=== PATIENT | female | born 1980 | race Two or more races ===

== ENCOUNTER 2017-02-05 10:13 | Inpatient (IN) | payer MEDICAID ==
[~2017-02-05] VITALS: Ht 152.4 cm; Wt 90.0 kg
[~2017-02-05 10:13] MED LIST: EPHEDrine SULFATE 50 MG/5 ML SYG ONE
[2017-02-05 11:15] VITALS: Ht 152.4 cm; Wt 90.0 kg
[2017-02-05] MEDS ORDERED: OXYTOCIN 30 UNITS/LR 500 ML IV SCH (11:30)
[2017-02-05] MEDS ORDERED: MISOPROSTOL 200 MCG TAB PR PRN ×2 (11:30→22:00)
[2017-02-05] MEDS ORDERED: CARBOPROST 250 MCG INJ IM PRN ×2 (11:30→22:00)
[2017-02-05] MEDS ORDERED: CLINDAMYCIN 900 MG/D5W (PMX) 50 ML IV SCH (11:30)
[2017-02-05] MEDS ORDERED: METHYLERGONOVINE 0.2 MG INJ IM PRN ×2 (11:30→22:00)
[2017-02-05] MEDS ORDERED: OXYTOCIN 30 UNITS/LR 500 ML IV PRN ×2 (11:30→22:00)
[2017-02-05 11:49] LABS: ADD SCAN DIFF NO
[2017-02-05 11:57] LABS: BASOPHILS % 0.2 % (0.0-2.0); EOSINOPHILS % 0.4 % (0.0-7.0); HEMATOCRIT 37.6 % (37.0-47.0); HEMOGLOBIN 13.1 g/dl (12.0-16.0); LYMPHOCYTES # 1.5 10^3/ul (0.8-2.9); LYMPHOCYTES % 17.6 % (15.0-51.0); MEAN CORPUSCULAR HGB CONC 34.8 g/dl (32.0-37.0); MEAN CORPUSCULAR VOLUME 91.7 fl (82.0-101.0); MEAN PLATELET VOLUME 9.8 fl (7.4-10.4); MONOCYTE # 0.6 10^3/ul (0.3-0.9); MONOCYTES % 6.9 % (0.0-11.0); NEUTROPHIL # 6.3 10^3/ul (1.6-7.5); NEUTROPHILS % 74.1 % (39.0-77.0); PLATELET COUNT 256 10^3/UL (140-415); RED CELL DISTRIBUTION WIDTH 12.8 % (11.5-14.5); WHITE BLOOD COUNT 8.4 10^3/ul (4.8-10.8)
[2017-02-05 12:14] LABS: INR 0.81; PROTIME 11.2 Sec (12.2-14.2); PT RATIO 0.9
[2017-02-05 12:15] LABS: PARTIAL THROMBOPLASTIN TIME 25.1 Sec (25.0-35.0)
[2017-02-05] MEDS: LACTATED RINGER'S 1,000 ML IV SCH (13:49)
[2017-02-05] MEDS ORDERED: DEXTROSE 5%-LR 1,000 ML IV SCH (14:00)
[2017-02-05] MEDS ORDERED: CITRIC ACID/NA CITRATE 30 ML CUP PO ONE (14:00)
[2017-02-05 14:43] LABS: ALBUMIN 3.4 g/dl (3.3-4.9)
[2017-02-05 14:44] LABS: POTASSIUM 4.1 mmol/L (3.5-5.1)
[2017-02-05 14:46] LABS: ALBUMIN/GLOBULIN RATIO 0.91; BILIRUBIN,INDIRECT 0.1 mg/dl (0-1.1); BILIRUBIN,TOTAL 0.1 mg/dl (0.2-1.3); CREATININE 0.46 mg/dl (0.44-1.00); TOTAL PROTEIN 7.1 g/dl (6.1-8.1)
[2017-02-05 14:47] LABS: CALCIUM 9.2 mg/dl (8.4-10.2)
[2017-02-05 15:29] LABS: ADD UMIC NO; URINE BILIRUBIN (Dip) NEGATIVE (NEGATIVE); URINE BLOOD (Dip) NEGATIVE (NEGATIVE); URINE COLOR LT. YELLOW (YELLOW); URINE GLUCOSE (Dip) NEGATIVE (NEGATIVE); URINE KETONES (Dip) 40 (NEGATIVE); URINE LEUKOCYTE ESTERASE (Dip) NEGATIVE (NEGATIVE); URINE NITRITE (Dip) NEGATIVE (NEGATIVE); URINE TOTAL PROTEIN (Dip) NEGATIVE (NEGATIVE); URINE UROBILINOGEN (Dip) 0.2 E.U./dL (0.1-1.0)
[2017-02-05] MEDS ORDERED: morphine SULFATE/PF (10 MG/10 ML) INJ ONE (16:38)
[2017-02-05] MEDS ORDERED: METOCLOPRAMIDE 10 MG INJ ONE (17:20)
[2017-02-05] MEDS ORDERED: KETOROLAC 30 MG INJ ONE (17:20)
[2017-02-05] MEDS ORDERED: EPINEPHrine 0.1 MG/ML SYG ONE (17:22)
[2017-02-05] MEDS ORDERED: DIPHENHYDRAMINE 50 MG INJ IV PRN ×2 (18:00→19:00)
[2017-02-05] MEDS ORDERED: METOCLOPRAMIDE 10 MG INJ IV PRN (18:00)
[2017-02-05] MEDS ORDERED: MEPERIDINE 25 MG INJ IV PRN (18:00)
[2017-02-05] MEDS ORDERED: HYDROmorphONE (0.2 MG/ML) 10ML SYG IV PRN ×3 (18:00)
[2017-02-05] MEDS ORDERED: ONDANSETRON 4 MG INJ IV PRN ×2 (18:00→19:00)
[2017-02-05] MEDS ORDERED: HYDROmorphONE 1 MG/ML SYG IV PRN ×3 (19:00)
[2017-02-05] MEDS ORDERED: NALOXONE (0.4 MG/ML) INJ IV PRN (19:00)
--- NOTE | 2017-02-05 19:20 | OPR ---
DATE OF OPERATION: 02/05/2017 PREOPERATIVE DIAGNOSES: 1. Intrauterine at 38 weeks and 5 days, history of previous section, in early la bor. 2. complicated with the gestational diabetes and suspected -induced hypertension . POSTOPERATIVE DIAGNOSES: 1. Intrauterine at 38 weeks and 5 days, history of previous section, in early la bor. 2. complicated with the gestational diabetes and suspected -induced hypertension . OPERATION PERFORMED: Repeat transverse low cervical section. SURGEON: Poornima Steiner MD SWIM COACH: Hosea Chu MD ANESTHESIA: Spinal. ANESTHESIOLOGIST: Dr. Angel FINDINGS: Live baby boy, 7, 8, and 9. DETAILS OF THE PROCEDURE: Under satisfactory spinal anesthesia, the patient was prepped and draped and placed in supine position, tilted to the left. Pfannenstiel incision was made. Old scar was re moved. Incision carried through the subcutaneous tissue. Bleeders brought under control with elect rocautery. Fascia incised to the length of the incision. Rectus muscle divided in midline. Perito neum exposed, entered through a transverse incision. Exploration of abdomen. Gravid uterus, normal appearing tubes and ovaries, extremely thinned out lower segment of the uterus. Bladder flap was d eveloped. Transverse incision was made in the lower segment of the uterus. Amniotic sac ruptured. Meconium stained amniotic fluid noted. Live baby boy was delivered from unengaged vertex. Nasal o ropharyngeal suction was performed. Baby handed to the team for immediate attention. The patient received 20 units of Pitocin. Placenta, which was meconium stained, delivered manually and sent for pathology. Uterine cavity cleaned with a cleaned with wet sponge and drainage established. Uterus closed in 2 layers using Monocryl #1 in continuous fashion. Peritoneal cavity irrigated wi th warm saline. Sponge, needle, and instrument reported to be correct. Abdominal peritoneum closed with 2-0 chromic catgut continuously. Rectus muscle approximated with few interrupted 2-0 chromic catgut. Fascia closed with #1 PDS in a continuous fashion. Subcutaneous tissue approximated with 2 -0 chromic catgut. The skin closed with magalis. Estimated blood loss 600 to 700 mL. Urine bag co ntained 200 mL of clear urine. The patient tolerated procedure well, transferred to recovery room i n a good condition. Dictated By: POORNIMA STEINER MD HF/NTS Conf#: [id number] DID#: [id number]
--- NOTE | 2017-02-05 19:32 | HP ---
DATE OF ADMISSION: 02/05/2017 HISTORY OF PRESENT ILLNESS: This is a 35-year-old female, 6, para 2, termination 2 , 0, SAB 3, IAB 0, living child 2, with an EDC of 02/14/2017, admitted at 38 weeks and 5 day s to the hospital in labor with a history of 2 previous sections, being prepared to undergo a repeat for the third time. This patient has been under the care of the [facility] and her course was complicated with gestational diabetes, on glyburide 1000 mg at [facility]. No other complication has been noted during the course of this . GYNECOLOGIC HISTORY: Menarche at age 13, regular period every 28 days, lasting for 4 or 5 days. Hi story of total of 6 pregnancies, 2 previous sections, 3 spontaneous abortions. ALLERGIES: SHE IS NOT ALLERGIC TO PENICILLIN. SOCIAL HISTORY: Denies smoking and drinking. REVIEW OF SYSTEMS: Within normal. PHYSICAL EXAMINATION: VITAL SIGNS: Height 5 feet, weight 198 pounds with a temperature of 97.5, pulse of 58, respirations 18, and a blood pressure 123/62. HEAD, EARS, NOSE, AND THROAT: Negative. NECK: Supple. No thyromegaly. LUNGS: Clear to P and A. HEART: Normal sinus rhythm, no murmur. BREASTS: Status compatible with state of the . No abnormal palpable mass. No nipple retr action or discharge. No axillary adenopathy. No supraclavicular adenopathy. ABDOMEN: Measures approximately 37 cm from symphysis pubis. heart rate category 1. The zeb ent had mild contractions. PELVIC: Deferred. EXTREMITIES: No edema, no varicosities. IMPRESSION: 1. Intrauterine at 38 weeks and 5 days. 2. History of 2 previous sections. Referred from the perinatology due to 1 deceleration a nd 1 elevated blood pressure which was recommended to attempt for the repeat section. The patient is aware of the complication of this surgery including bowel or bladder injury, infectio n, hemorrhage, and hematoma, and she is willing to go ahead with this procedure. Dictated By: POORNIMA CASTREJON/NTS Conf#: [id number] DID#: [id number]
[2017-02-05 21:15] VITALS: BP 145/81; PULSE 63; RESP 18
[2017-02-05] MEDS ORDERED: LANOLIN 7 GM TUBE TOP PRN (22:00)
[2017-02-05] MEDS ORDERED: ACETAMINOPHEN/CODEINE #3 TAB PO PRN ×2 (22:00)
[2017-02-05] MEDS ORDERED: OXYCODONE/ACETAMINOPHEN (5/325) TAB PO PRN ×2 (22:00)
[2017-02-05] MEDS ORDERED: CEFAZOLIN 1 GM/50 ML (PMX) 50 ML IVPB SCH (22:00)
[2017-02-05] MEDS: OXYTOCIN 30 UNITS/LR 500 ML IV SCH (22:17)
[2017-02-06] VITALS: BP 138/84; PULSE 89; RESP 20
--- NOTE | 2017-02-06 00:58 | NSTRPT ---
NST Information Datetime Report Generated by CPN: 02/06/2017 00:58 Datetime: 02/05/2017 08:33 NST Information EGA: 38.5 Test Number: 11 Time on Monitor: 02/05/2017 08:50 Time off Monitor: 02/05/2017 09:36 NST Duration (Min): 46 Reason for NST: Diabetes Mellitus; Other Reason for NST Other: A2DM Test and Monitor Explained: Monitor Explained; Test Explained; Verbalized Understanding; Breastfee ding Info Given Pulse: 90 Resp: 18 SBP: 136 DBP: 90 Test Evaluation NST Interventions: PO Hydration; Reposition Patient Patient States Movement: Present Contraction Frequency: NONE FHR Baseline : 140 Variability: Moderate 6-25bpm Accelerations: 15X15 Decelerations: None FHR Category: Category I NST Results: Reactive Provider Notified: Dr Sen Comments: To u/s, CARL 11.9, Cephalic. BP 136/90. Pt c/o stars/spots and UTI symptoms, denies H/A or epigastic pain. states has mitra c/s 02/10. NPO after 744 914-Report called to Dr Harley, recommends delivery today. 919-Report called to ольга Sims's recommendation for delivery today. Orders received to admit to L_D for c/s this afternoon. POC discussed with pt states understanding and denies further questions at this time. 929-Report c alled to Darling RN, L_D. 940-Pt to L_D, no further questions Electronically Signed By E-Signature: with User ID: [id number] Datetime: 02/02/2017 09:19 NST Information EGA: 38.2 NST Duration (Min): 34 Datetime: 01/29/2017 08:48 NST Information EGA: 37.5 NST Duration (Min): 26 Datetime: 01/26/2017 09:18 NST Information EGA: 37.2 NST Duration (Min): 26 Datetime: 01/22/2017 09:02 NST Information EGA: 36.5 NST Duration (Min): 37 Datetime: 01/19/2017 08:26 NST Information EGA: 36.2 NST Duration (Min): 24 Datetime: 01/15/2017 10:39 NST Information EGA: 35.5 NST Duration (Min): 46 Datetime: 01/12/2017 10:47 NST Information EGA: 35.2 NST Duration (Min): 28 Datetime: 01/08/2017 10:49 NST Information EGA: 34.5 NST Duration (Min): 24 Datetime: 01/05/2017 10:12 NST Information EGA: 34.2 NST Duration (Min): 26 Datetime: 01/01/2017 13:43 NST Information EGA: 33.5 Datetime: 01/01/2017 13:40 NST Duration (Min): 22
[2017-02-06] MEDS: OXYTOCIN 30 UNITS/LR 500 ML IV SCH ×6 (02:21→21:33)
[2017-02-06 04:00] VITALS: BP 129/84; PULSE 76; RESP 18
[2017-02-06] MEDS: IBUPROFEN 600 MG TAB PO SCH ×5 (06:00→23:33)
[2017-02-06 07:39] LABS: ADD SCAN DIFF NO
[2017-02-06 07:49] LABS: BASOPHILS % 0.2 % (0.0-2.0); EOSINOPHILS % 0.5 % (0.0-7.0); HEMATOCRIT 35.1 % (37.0-47.0); HEMOGLOBIN 11.6 g/dl (12.0-16.0); LYMPHOCYTES # 1.2 10^3/ul (0.8-2.9); LYMPHOCYTES % 13.9 % (15.0-51.0); MEAN CORPUSCULAR VOLUME 93.9 fl (82.0-101.0); MEAN PLATELET VOLUME 10.3 fl (7.4-10.4); MONOCYTE # 0.5 10^3/ul (0.3-0.9); MONOCYTES % 5.7 % (0.0-11.0); NEUTROPHIL # 6.7 10^3/ul (1.6-7.5); NEUTROPHILS % 78.9 % (39.0-77.0); PLATELET COUNT 207 10^3/UL (140-415); RED BLOOD COUNT 3.74 10^6/ul (4.20-5.40); WHITE BLOOD COUNT 8.5 10^3/ul (4.8-10.8)
[2017-02-06 08:00] VITALS: BP 126/80; PULSE 86; RESP 19
[2017-02-06] MEDS: [UNRECOGNIZED DRUG - REMARK] XX SCH ×2 (08:30→15:11)
[2017-02-06] MEDS: SENNA/DOCUSATE NA (8.6MG/50MG) TAB PO SCH ×2 (10:38→20:39)
[2017-02-06 12:00] VITALS: BP 136/83; PULSE 82; RESP 19
--- NOTE | 2017-02-06 14:12 | PN ---
Date/Time of Note Date/Time of Note DATE: 02/06/17 TIME: 14:10 OB Subjective Subjective Subjective Post day 1 Afebrile vital signs stable, abdomen soft mildly distended bowel sounds present lochia normal incision dry extremities normal ambulation recommended Laboratory Tests Test 02/05/17 14:31 02/06/17 06:20 Urine Color LT. YELLOW Urine Clarity CLEAR Urine pH 6.5 Urine Specific [place] 1.010 Urine Ketones 40 Urine Nitrite NEGATIVE Urine Bilirubin NEGATIVE Urine Urobilinogen 0.2 E.U./dL Urine Leukocyte Esterase NEGATIVE Urine Hemoglobin NEGATIVE Urine Glucose NEGATIVE% Urine Total Protein NEGATIVE White Blood Count 8.510^3/ul Red Blood Count 3.7410^6/ul Hemoglobin 11.6g/dl Hematocrit 35.1% Mean Corpuscular Volume 93.9fl Mean Corpuscular Hemoglobin 31.0pg Mean Corpuscular Hemoglobin Concent 33.0g/dl Red Cell Distribution Width 13.0% Platelet Count 17821^3/UL Mean Platelet Volume 10.3fl Neutrophils % 78.9% Lymphocytes % 13.9% Monocytes % 5.7% Eosinophils % 0.5% Basophils % 0.2% Nucleated Red Blood Cells % 0.0/100WBC Neutrophils # 6.710^3/ul Lymphocytes # 1.210^3/ul Monocytes # 0.510^3/ul Eosinophils # 0.010^3/ul Basophils # 0.010^3/ul Nucleated Red Blood Cells # 0.010^3/ul Current Medications Medications (Trade) Dose Ordered Sig/Duke Route PRN Reason Start Time Stop Time Status Last Admin Dose Admin Lactated Ringer's 1,000 ml @ 125 mls/hr Q8H IV 02/05/17 11:11 02/05/17 21:36 DC 02/05/17 13:49 Clindamycin HCl/ Dextrose 50 ml @ 50 mls/hr ONCE IV 02/05/17 11:30 02/05/17 21:36 DC Oxytocin/Lactated Ringer's 500 ml @ 125 mls/hr ONCE IV 02/05/17 11:30 02/05/17 21:36 DC 02/05/17 20:35 Oxytocin/Lactated Ringer's 500 ml @ 0 mls/hr ONCE PRN IV For Hemorrhage Management 02/05/17 11:30 02/05/17 21:36 DC Methylergonovine Maleate (Methergine) 0.2 mg ONCE PRN IM VAGINAL BLEEDING 02/05/17 11:30 02/05/17 21:36 DC Carboprost Tromethamine (Hemabate) 250 mcg ONCE PRN IM VAGINAL BLEEDING 02/05/17 11:30 02/05/17 21:36 DC Misoprostol 1000 mcg 1,000 mcg ONCE PRN UT VAGINAL BLEEDING 02/05/17 11:30 02/05/17 21:36 DC Dextrose/Lactated Ringer's (D5-Lr) 1,000 ml @ 125 mls/hr Q8H IV 02/05/17 14:00 02/05/17 21:36 DC Citric Acid/ Sodium Citrate (Bicitra) 30 ml ONCE ONCE PO 02/05/17 14:00 02/05/17 14:01 DC Morphine Sulfate (Duramorph) 10 mg STK-MED ONCE .ROUTE 02/05/17 16:38 02/05/17 16:39 DC Metoclopramide HCl (Reglan) 10 mg STK-MED ONCE .ROUTE 02/05/17 17:20 02/05/17 17:21 DC Ketorolac Tromethamine (Toradol) 30 mg STK-MED ONCE .ROUTE 02/05/17 17:20 02/05/17 17:21 DC Epinephrine 1 mg STK-MED ONCE .ROUTE 02/05/17 17:22 02/05/17 17:23 DC Hydromorphone HCl (Dilaudid (Rec)) 0.2 mg PACU ORDER PRN IV MILD PAIN LEVEL 1-3 02/05/17 18:00 02/05/17 21:36 DC Hydromorphone HCl (Dilaudid (Rec)) 0.4 mg PACU ORDER PRN IV MODERATE PAIN LEVEL 4-6 02/05/17 18:00 02/05/17 21:36 DC Hydromorphone HCl (Dilaudid (Rec)) 0.6 mg PACU ORDER PRN IV SEVERE PAIN LEVEL 7-10 02/05/17 18:00 02/05/17 21:36 DC Ondansetron HCl (Zofran Inj) 4 mg PACU ORDER PRN IV NAUSEA AND/OR VOMITING 02/05/17 18:00 02/05/17 21:36 DC Metoclopramide HCl (Reglan) 10 mg PACU ORDER PRN IV NAUSEA AND/OR VOMITING 02/05/17 18:00 02/05/17 21:36 DC Meperidine HCl (Demerol) 25 mg PACU ORDER PRN IV POST-OP RIGORS 02/05/17 18:00 02/05/17 21:36 DC Diphenhydramine HCl (Benadryl) 25 mg PACU ORDER PRN IV PRURITUS 02/05/17 18:00 02/05/17 21:36 DC Naloxone HCl (Narcan) 0.1 mg Q2M PRN IV FOR RESP RATE 8 OR LESS 02/05/17 19:00 02/06/17 18:59 Hydromorphone HCl (Dilaudid) 1 mg Q3H PRN IV BREAKTHROUGH PAIN 02/05/17 19:00 02/06/17 18:59 Hydromorphone HCl (Dilaudid) 0.2 mg Q3H PRN IV PAIN LEVEL 1-5 02/05/17 19:00 02/06/17 18:59 Hydromorphone HCl (Dilaudid) 0.4 mg Q3H PRN IV PAIN LEVEL 6-10 02/05/17 19:00 02/06/17 18:59 Diphenhydramine HCl (Benadryl) 25 mg Q6H PRN IV ITCHING 02/05/17 19:00 02/06/17 18:59 Ondansetron HCl (Zofran Inj) 4 mg Q6H PRN IV NAUSEA AND/OR VOMITING 02/05/17 19:00 02/06/17 18:59 Acetaminophen/ Codeine Phosphate (Tylenol No.3) 1 tab Q4H PRN PO PAIN LEVEL 4-6 02/05/17 22:00 Acetaminophen/ Codeine Phosphate (Tylenol No.3) 2 tab Q4H PRN PO PAIN LEVEL 7-10 02/05/17 22:00 Oxycodone/ Acetaminophen (Percocet (5/ 325)) 1 tab Q4H PRN PO PAIN LEVEL 4-6 02/05/17 22:00 Oxycodone/ Acetaminophen (Percocet (5/ 325)) 2 tab Q4H PRN PO PAIN LEVEL 7-10 02/05/17 22:00 Ibuprofen (Motrin) 600 mg Q6 PO 02/06/17 00:00 Simethicone (Mylicon) 160 mg Q8H PRN PO DISTENSION/GAS/BLOATING 02/05/17 22:00 Senna/Docusate Sodium (Senokot-S) 1 tab BID PO 02/06/17 09:00 02/06/17 10:38 Lanolin (Exi-P-Cuzrwd) 1 applic BEDSIDE MEDICATION PRN TOP BEDSIDE FOR PRIETO TO NIPPLES 02/05/17 22:00 Diphtheria/ Tetanus/Acell Pertussis 0.5 ml 0.5 ml ONCE ONCE IM* 02/08/17 09:00 02/08/17 09:01 Oxytocin/Lactated Ringer's 500 ml @ 0 mls/hr ONCE PRN IV For Hemorrhage Management 02/05/17 22:00 Methylergonovine Maleate (Methergine) 0.2 mg ONCE PRN IM VAGINAL BLEEDING 02/05/17 22:00 Carboprost Tromethamine (Hemabate) 250 mcg ONCE PRN IM VAGINAL BLEEDING 02/05/17 22:00 Misoprostol 1000 mcg 1,000 mcg ONCE PRN [place] VAGINAL BLEEDING 02/05/17 22:00 Cefazolin Sodium 50 ml @ 100 mls/hr ONCE IVPB 02/05/17 22:00 02/05/17 22:29 UNV Oxytocin/Lactated Ringer's 500 ml @ 125 mls/hr Q4H IV 02/05/17 21:33 02/06/17 10:42 Influenza Virus Vaccine (Fluzone) 0.5 ml ONCE ONCE IM* 02/07/17 09:00 02/07/17 09:01 Miscellaneous Information (*Order Clarification Bulletin) MEDICATION REQUIRES CLARIFICATION... Q8H XX 02/06/17 08:30 POORNIMA STEINER MD Feb 06, 2017 14:12
[2017-02-06] MEDS ORDERED: CLINDAMYCIN 900 MG/D5W (PMX) 50 ML IVPB ONE (14:30)
[2017-02-06 16:00] VITALS: BP 138/86; PULSE 65; RESP 18
[2017-02-06 19:30] VITALS: BP 131/77; PULSE 68; RESP 19
[2017-02-07] MEDS: [UNRECOGNIZED DRUG - REMARK] XX SCH (00:30)
[2017-02-07] MEDS: OXYTOCIN 30 UNITS/LR 500 ML IV SCH ×6 (01:33→21:33)
[2017-02-07 04:00] VITALS: BP 132/85; PULSE 69; RESP 20
[2017-02-07] MEDS: IBUPROFEN 600 MG TAB PO SCH ×4 (05:51→23:45)
[2017-02-07 07:45] VITALS: BP 139/86; PULSE 62; RESP 20
[2017-02-07] MEDS ORDERED: INFLUENZA VIRUS VACCINE 0.5 ML (DISPENSING) IM* ONE (09:00)
[2017-02-07] MEDS: SENNA/DOCUSATE NA (8.6MG/50MG) TAB PO SCH ×2 (09:00→20:58)
[2017-02-07 12:00] VITALS: BP 134/83; RESP 18
--- NOTE | 2017-02-07 12:31 | PN ---
Date/Time of Note Date/Time of Note DATE: 02/07/17 TIME: 12:30 OB Subjective Subjective Subjective Post day 2 Afebrile abdomen soft incision dry bowel sounds present patient had normal bowel movement extremities normal plan of a.m. discharge discussed POORNIMA STEINER MD Feb 07, 2017 12:31
[2017-02-07 15:45] VITALS: BP 134/77; PULSE 62; RESP 18
[2017-02-07 19:45] VITALS: BP 135/82; PULSE 69; RESP 19
[2017-02-08] MEDS: OXYTOCIN 30 UNITS/LR 500 ML IV SCH ×2 (01:33→05:33)
[2017-02-08 04:04] VITALS: BP 138/83; PULSE 79; RESP 20
[2017-02-08] MEDS: IBUPROFEN 600 MG TAB PO SCH ×2 (05:45→12:01)
[2017-02-08 08:05] VITALS: BP 125/85; PULSE 62; RESP 19
[2017-02-08] MEDS ORDERED: DIPHTH/TET/ACEL PERTUSS (ADULT) 0.5 ML VIAL IM* ONE (09:00)
[2017-02-08] MEDS: SENNA/DOCUSATE NA (8.6MG/50MG) TAB PO SCH (09:00)
--- NOTE | 2017-02-08 10:22 | QN ---
Documentation Comment POD#3 is stable afebrile tolerates diet No VB +BM +voids Asymptomatic no sign of depression VS Stable Gen NAD Abd soft NT ND Incision intact,Liss will be removed in the office on thursday Genitalia No blood at perinium --->Discharge plan tomorrow --->Repeat CBC at 2 PM PAPI ISBELL M.D. Feb 08, 2017 10:22
--- NOTE | 2017-02-08 10:24 | DS ---
Date/Time of Note Date/Time of Note DATE: 02/08/17 TIME: 10:23 Discharge Summary Admission/Discharge Info Admit Date/Time Feb 05, 2017 at 10:13 Discharge Date/Time Final Diagnosis repeat c/section Patient Condition: Stable Procedures Repeat c/section Hospital Course uneventful PAPI ISBELL M.D. Feb 08, 2017 10:23
--- NOTE | 2017-02-08 10:27 | QN ---
Documentation Comment Add on:Patient is getting discharge.No Need for CBC today PAPI ISBELL M.D. Feb 08, 2017 10:27
--- NOTE | 2017-02-09 11:06 | PN ---
Date/Time of Note Date/Time of Note DATE: 02/06/17 TIME: 11:19 Anesthesia note: A 36 year fmale post c section, pt is doinf well. no n/v, headache, itching. V/ S stable. back is clean. care per gas maker helper Assessment/Plan VTE Prophylaxis VTE Prophylaxis Intervention: ambulation Lines/Catheters IV Catheter Type (from Nrs): Saline Lock Exam/Review of Systems Vital Signs Vitals Vital Signs Date Time Temp Pulse Resp B/P Pulse Ox O2 Delivery O2 Flow Rate FiO2 02/08/17 08:05 97.9 62 19 125/85 Room Air 02/06/17 12:17 98 21 Results Result Diagram: 02/06/17 0620 02/05/17 1129 ALLIE JOHNSON MD Feb 09, 2017 11:06
== END 2017-02-08 14:45 | disposition home or self-care (01) | DRG 765 ==
LOC: L-D 10:13 → PP1 21:13
PROVIDERS: ADMIT Obstetrics & Gynecology; ATTEND Obstetrics & Gynecology
PROC: 10D00Z1 Extraction of Products of Conception, Low, Open Approach (ICD-10-PCS; principal; 2017-02-05 17:00)
DX: O34.211 Maternal care for low transverse scar from previous cesarean delivery (principal); O13.3 Gestational [pregnancy-induced] hypertension without significant proteinuria, third trimester; O24.419 Gestational diabetes mellitus in pregnancy, unspecified control; Z3A.38 38 weeks gestation of pregnancy; Z37.0 Single live birth
CPT/HCPCS: 80053; 81003; 82962; 84560; 85025; 85384; 85610; 85730; 86592; 86850; 86900; 86901; 90686; 90715; 94760; 99464; J0171; J1170; J1885; J2274; J2590; J2765; J7120; J7121